=== PATIENT | female | born 1955 | race Caucasian/White ===

== ENCOUNTER 2016-05-11 20:55 | Emergency (ER) | payer OTHER ==
[~2016-05-11 20:55] MED LIST: CIPRO PO; CIPRO250 MG PO; COLACE PO; FLEXERIL10 MG PO; HYDROCODONE-APA1 T51 PO; IRON325 ( 651 PO; KLONOPIN; KLONOPIN PO; KLONOPIN2 MG PO; LORTAB 7.5-5001 TAB PO; LOVENOX SUBQ; MOTRIN600 M1 PO; NORVASC PO; PAROXETINE HCL20 M1 PO; PERCOCET PO; PRILOSEC20 MG PO; PROMETHAZINE HC25 MG PO; PROTONIX PO; PROZAC; ROBAXIN 750750 MG PO; ROBAXIN PO; TAZORAC30 G2 PO; ULTRAM PO; VICODIN PO; VIT B-12 IM; WELLBUTRIN XL PO; ZANAFLEX4 M1 PO; ZEGERID40 MG/PKT PO
== END 2016-05-11 21:00 | disposition home or self-care (01) ==
LOC: CFTX 20:55
DX: S30.0XXA Contusion of lower back and pelvis, initial encounter (principal); J45.909 Unspecified asthma, uncomplicated; F41.9 Anxiety disorder, unspecified; W18.40XA Slipping, tripping and stumbling without falling, unspecified, initial encounter; Y92.9 Unspecified place or not applicable
CPT/HCPCS: 99283